=== PATIENT | female | born 1970 | race American Indian/Alaskan Native ===

== ENCOUNTER 2016-06-01 00:25 | Emergency (ER) | payer SELFPAY ==
[2016-06-01 01:19] LABS: Basophils % (Auto) 1.1 % (0.0-1.8); Eosinophils % (Auto) 4.7 % (0.0-4.3); Hematocrit 34.6 % (30.3-42.9); Hemoglobin 11.4 gm/dl (10.1-14.3); Mean Corpuscular HGB Conc 33 % (30-34); Mean Corpuscular Hemoglobin 30 pg (28-32); Mean Corpuscular Volume 90 fl (79-97); Platelet Count 208 K/mm3 (140-440); Red Blood Count 3.85 M/mm3 (3.65-5.03); White Blood Count 4.2 K/mm3 (4.5-11.0)
--- NOTE | 2016-06-01 01:19 | Cat Scan Report ---
FINAL REPORT PROCEDURE: CT HEAD/BRAIN WO CON TECHNIQUE: Computerized tomography of the head was performed without contrast material. HISTORY: lt arm and leg weakness COMPARISON: No prior studies are available for comparison. FINDINGS: Skull and scalp: Normal. Paranasal sinuses: Normal. Ventricles and subarachnoid spaces: Normal. Cerebrum: No evidence of hemorrhage, acute infarction or mass . Cerebellum and brainstem: No evidence of hemorrhage, acute infarction or mass. Vasculature: Normal. Comments: None. IMPRESSION: There is no evidence of an acute intracranial process
[2016-06-01 01:21] LABS: INR 1.11 (0.87-1.13)
[2016-06-01 01:22] LABS: Partial Thromboplastin Time 34.3 Sec. (24.2-36.6)
[2016-06-01 01:32] LABS: Blood Urea Nitrogen 9 mg/dL (7-17); Calcium 8.3 mg/dL (8.4-10.2); Carbon Dioxide 26 mmol/L (22-30); Chloride 104.8 mmol/L (98-107); Glucose 79 mg/dL (65-100); Potassium 3.6 mmol/L (3.6-5.0); Sodium 141 mmol/L (137-145)
[2016-06-01 01:34] LABS: Anion Gap 14 mmol/L
--- NOTE | 2016-06-01 22:25 | ED Elopement Review ---
ED Pt Elopement review - Results review Lab results: Laboratory Tests 06/01/16 06/01/16 06/01/16 00:41 00:59 00:59 WBC 4.2 L RBC 3.85 Hgb 11.4 Hct 34.6 MCV 90 MCH 30 MCHC 33 RDW 14.0 Plt Count 208 Lymph % (Auto) 24.3 [place] % (Auto) 9.8 H Eos % (Auto) 4.7 H Baso % (Auto) 1.1 Lymph # 1.0 L [place] # 0.4 Eos # 0.2 Baso # 0.0 Seg Neutrophils % 60.1 Seg Neutrophils # 2.5 PT 14.2 INR 1.11 APTT 34.3 Thrombin Time 17.2 Sodium Potassium Chloride Carbon Dioxide Anion Gap BUN Creatinine Estimated GFR BUN/Creatinine Ratio Glucose POC Glucose 91 Calcium Troponin T 06/01/16 00:59 WBC RBC Hgb Hct MCV MCH MCHC RDW Plt Count Lymph % (Auto) [place] % (Auto) Eos % (Auto) Baso % (Auto) Lymph # [place] # Eos # Baso # Seg Neutrophils % Seg Neutrophils # PT INR APTT Thrombin Time Sodium 141 Potassium 3.6 Chloride 104.8 Carbon Dioxide 26 Anion Gap 14 BUN 9 Creatinine 0.6 L Estimated GFR > 60 BUN/Creatinine Ratio 15.00 Glucose 79 POC Glucose Calcium 8.3 L Troponin T < 0.010 - Call Back decision Pt Call Back Decision: No action required
== END 2016-06-01 01:00 | disposition left against medical advice (07) ==
LOC: ED 00:25
DX: R20.2 Paresthesia of skin (principal); R53.1 Weakness; Z53.21 Procedure and treatment not carried out due to patient leaving prior to being seen by health care provider
CPT/HCPCS: 36415; 70450; 80048; 82962; 84484; 85025; 85610; 85670; 85730; 93005; 93010